=== PATIENT | female | born 1950 ===

== ENCOUNTER → 2018-01-15 | Outpatient (CLI) | payer MEDICARE, OTHER ==
[~2018-01-15] MED LIST: CHOL400T55 PO; CYCL10TA29 PO; LOR5/325 PO; MULT-1335 PO; SERT-1 PO
--- NOTE | 2018-01-15 17:19 | RADIOLOGY IMAGING REPORT ---
[place] [facility] [place] Thi Lance : 1950 MR: [id number] V: [id number] EXAM DATE: ORDERING PHYSICIAN: DIRK MEDRANO TECHNOLOGIST: Location: [facility] Patient: Thi Lance : 1950 Visit/Account:[id number] Date of Sevice: 01/15/2018 Exam type: LUMBAR SPINE 4 VIEWS History: Low back pain with left leg radiculopathy Comparison: None. Findings: There appear to be five nonrib-bearing lumbar-type vertebral bodies present with hypoplastic ribs at T12 is no evidence of acute fractures or subluxations. There are mild degenerative facet joint velasquez es at L4-5 and L5-S1. IMPRESSION: 1. Mild degenerative facet joint changes L4-5 and L5-S1. If patient's symptoms persist MR may be he lpful Report Dictated By: Nina South MD at 01/15/2018 5:13 PM Report E-Signed By: Nina South MD at 01/15/2018 5:15 PM WSN:[id number]
== END ==
LOC: RAD 16:29
PROVIDERS: ATTEND Family Medicine
DX: M54.5 Low back pain (principal); M54.10 Radiculopathy, site unspecified
CPT/HCPCS: 72120

== ENCOUNTER → 2018-01-20 | Outpatient (CLI) | payer MEDICARE, OTHER ==
--- NOTE | 2018-01-20 12:45 | RADIOLOGY IMAGING REPORT ---
FACILITY: [facility] [place] PATIENT NAME: Thi Lance : 1950 MR: [id number] V: [id number] EXAM DATE: ORDERING PHYSICIAN: DIRK MEDRANO TECHNOLOGIST: [place] [facility] [place]i [place] : 1950 Visit/Account:[id number] Date of Sevice: 01/20/2018 Study: MRI lumbar spine without gadolinium contrast. Indication:Low back pain, pain radiating down left leg Comparison study:None Technique:Multiplanar MRI sequences were obtained through the lumbar spine without the use of gadolin ium contrast. Findings:The examination demonstrates the presence of normal alignment of the lumbar vertebrae. There is no abnormal signal identified within the lumbar or sacral vertebrae. The conus medullaris is located posterior to the T12/L1 disc space level. There is no evidence of abnormality of the lumbar nerve roots. Disc spaces: L1/2:At this level, there is no significant disc pathology. There is no significant neural foraminal stenosis or spinal stenosis. L2/3:At this level, there is no significant disc pathology. There is mild facet and ligamentous hyper trophy There is no significant neural foraminal stenosis or spinal stenosis. L3/4: At this level, there is a minimal diffuse disc bulge. There is mild facet and ligamentous hyper trophy. There is no significant neural foraminal stenosis or spinal stenosis. L4/5: At this level, there is a diffuse disc bulge. There is facet and ligamentous hypertrophy. There is no significant neural foraminal stenosis or spinal stenosis. There is a synovial cyst projecting medially from the left-sided facet. This measures 1.2 cm in greatest dimension. This causes the effac ement of the left lateral recess and contacts the left L5 nerve root. This finding is most likely res ponsible for the patient's left-sided radiculopathy. L5/S1: At this level, there is no significant disc pathology. There is minimal facet and ligamentous hypertrophy. There is no significant neural foraminal stenosis or spinal stenosis. IMPRESSION: Minimal multilevel lumbar disc pathology and spondylopathy present as described. At the level of L4-L5, there is a left-sided synovial cyst projecting medially. This causes effacemen t of the left lateral recess and contacts the left L5 nerve root. This finding is likely the etiology of the patient's symptoms Please see the body of the report for description of individual disc levels. Report Dictated By: Drake Reyes at 01/20/2018 12:34 PM Report E-Signed By: Drake Reyes at 01/20/2018 12:41 PM WSN:[email or web address]
== END ==
LOC: MRI 01:16
PROVIDERS: ATTEND Family Medicine
DX: M48.16 Ankylosing hyperostosis [Forestier], lumbar region (principal); M71.38 Other bursal cyst, other site
CPT/HCPCS: 72148

== ENCOUNTER → 2018-07-02 | Outpatient (CLI) | payer MEDICARE, OTHER ==
[~2018-07-02] MED LIST changes: +GADOBENATE 529MG/1ML 5 ML VIAL ONE
--- NOTE | 2018-07-02 10:43 | RADIOLOGY IMAGING REPORT ---
FACILITY: [facility] PATIENT NAME: Thi Lance : 1950 MR: [id number] V: [id number] EXAM DATE: ORDERING PHYSICIAN: DIRK MEDRANO TECHNOLOGIST: Location: [facility] Patient: Thi Lance : 1950 Visit/Account:[id number] Date of Sevice: 07/02/2018 EXAMINATION: MRI brain without IV contrast MRI brain with IV contrast HISTORY: Left facial droop, left-sided neck pain. COMPARISON: None. TECHNIQUE: Multi-planar, multi-sequence brain MRI was performed before and after IV gadolinium. CONTRAST: 15 mL of IV MultiHance gadolinium. FINDINGS: Brain volume: Normal. Sagittal midline structures: Sagittal midline structures are normally formed. Partly empty sella, ty pically a normal variant. Ventricles: Normal. Acute ischemic changes: No diffusion restriction present to suggest acute ischemia. Hemorrhage: No acute hemorrhage or hemosiderin staining. Masses/edema: None. Enhancement: No abnormal intracranial enhancement. Conway-white: Negative. White matter: Normal. Vessels: Normal. Extra-axial: None. Calvarium/scalp: Negative. Skull base: Negative. Visualized sinuses/orbits: Negative. Visualized upper neck: Negative. IMPRESSION: No acute infarct, hemorrhage or intracranial mass lesion. Report Dictated By: Catrina Swanson MD at 07/02/2018 10:33 AM Report E-Signed By: Catrina Swanson MD at 07/02/2018 10:39 AM WSN:[id number]
--- NOTE | 2018-07-02 10:49 | RADIOLOGY IMAGING REPORT ---
FACILITY: [facility] [place] PATIENT NAME: Thi Lance : 1950 MR: [id number] V: [id number] EXAM DATE: ORDERING PHYSICIAN: DIRK MEDRANO TECHNOLOGIST: Location: [facility] [place] Patient: Thi Lance : 1950 Visit/Account:[id number] Date of Sevice: 07/02/2018 4 views cervical spine Indication: Left-sided neck pain. Comparison: None available. Findings: 4 views of the cervical spine are obtained. On the lateral projection, there is slight anterolisthesi s of C3 upon C4 which measures 2 mm. There is minimal anterolisthesis of C4 upon C5. Soft tissues are normal. There is multilevel degenerative disc disease present most pronounced at C5-6 and C6-7. Mult ilevel facet and uncovertebral joint osteoarthritis is seen. On the open-mouth view, C1-C2 articulati on is maintained. Odontoid view is unremarkable. IMPRESSION: 1. 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 2. Slight anterolisthesis C3 upon C4 and C4 upon C5, likely degenerative. Report Dictated By: Kapil Bhatt at 07/02/2018 10:42 AM Report E-Signed By: Kapil Bhatt at 07/02/2018 10:45 AM WSN:[email or web address]
== END ==
LOC: MRI 07:08
PROVIDERS: ATTEND Family Medicine
DX: M50.31 Other cervical disc degeneration, high cervical region (principal)
CPT/HCPCS: 36415; 70553; 72040; A9577; 82310; 82374; 82435; 82565; 82947; 84132; 84295; 84520